=== PATIENT | female | born 1980 | race Caucasian/White ===

== ENCOUNTER 2023-08-14 07:40 | Emergency (ER) | payer OTHER, SELFPAY ==
[2023-08-14 07:52] VITALS: BP 138/75; PULSE 96; RESP 18; TEMP 36.9; O2SAT 98; BMI 31.3
--- NOTE | 2023-08-14 08:08 | ED_ITS ---
HPI - General Adult General Chief complaint: Sore Throat Stated complaint: difficulty swallowing Time Seen by Provider: 08/14/23 07:59 History of Present Illness HPI narrative: This 43-year-old female comes in reporting sore throat that began 2 days ago. She also reports some nasal congestion but states that she does not have a cough. She does not report any fevers. She feels like the glands in her neck are swollen. Related Data Home Medications Medication Instructions Recorded Confirmed citalopram 40 mg tablet 40 mg PO DAILY 08/14/23 08/14/23 dextroamphetamine-amphetamine 20 1 tab PO 3XD 08/14/23 08/14/23 mg tablet Previous Rx's Medication Instructions Recorded amoxicillin 500 mg capsule 500 mg PO TID 7 days #21 caps 08/14/23 Allergies Allergy/AdvReac Type Severity Reaction Status Date / Time No Known Drug Allergies Allergy Verified 08/14/23 07:54 Review of Systems Status of ROS: Reports: 10 or more systems reviewed and unremarkable except as noted in History and below Narrative: Constitutional: No fevers, no weight gain or loss. Eyes: No discharge. No vision changes. HENT: Sore throat and nasal congestion. She reports bilateral ear pain also. Cardiovascular: No chest pain, no palpitations. Respiratory: No shortness of breath, no wheezes, no cough. Gastrointestinal: No abdominal pain, no vomiting, no diarrhea. Genitourinary: No dysuria, no hematuria. Musculoskeletal: Normal range of motion. Skin: No rashes, no pruritis. Neurological: No dizziness, weakness, sensory change, speech change. Endo/Heme/Allergies: No bruising or bleeding. No polydipsia. Pysch: no suicidality, no anxiety, no insomnia. All other systems reviewed and are negative. PFSH [facility] Social History Smoking Status: Never smoker How often do you have a drink containing alcohol: never How often do you have six or more drinks on one occasion: Never AUDIT-C Alcohol total score: 0 Non-prescribed substance use: denies use Exam Narrative: Exam Narrative: Constitutional: Well-developed, well-nourished, no acute distress. HEENT: Normocephalic, atraumatic. Tympanic membranes appear normal bilaterally. Pharyngeal erythema without exudate or tonsillar hypertrophy. No trismus or muffled voice. Neck: Normal range of motion. Nontender. Supple. Heart: Regular. No murmurs. Normal rate. Intact distal pulses. Lungs: Clear to auscultation. No chest discomfort. No wheezes, rhonchi, or rales. Abdomen: Normal bowel sounds. Nontender. No rebound tenderness. Genitalia: Deferred. Back: No midline tenderness. Normal range of motion. Extremities: Normal range of motion. No injury. Skin: Intact. No rash. Warm. No erythema or pallor. Neurologic: No altered sensation. No weakness. Alert and oriented. Psychiatric: No suicidality. No anxiety or depression. No insomnia. Nursing notes and vitals signs are reviewed. Const: Vital Signs, click to edit/add: Vital Signs - 24 hr 08/14/23 07:52 Temperature 98.5 F Pulse Rate [Right Pulse Oximeter] 96 Respiratory Rate 18 Blood Pressure [Ri ght Upper Arm] 138/75 Pulse Oximetry 98 Oxygen Delivery Me thod Room Air Course Vital Signs Vital signs: Initial Vital Signs Temperature 98.5 F 08/14/23 07:52 Temperature Source Temporal Artery Scan 08/14/23 07:52 Pulse Rate 96 08/14/23 07:52 Respiratory Rate 18 08/14/23 07:52 Blood Pressure 138/75 08/14/23 07:52 Blood Pressure Mean 96 08/14/23 07:52 Blood Pressure Position Sitting 08/14/23 07:52 Pulse Oximetry 98 08/14/23 07:52 Oxygen Delivery Method Room Air 08/14/23 07:52 Vital Signs Temperature 98.5 F 08/14/23 07:52 Pulse Rate 96 08/14/23 07:52 Respiratory Rate 18 08/14/23 07:52 Blood Pressure 138/75 08/14/23 07:52 Pulse Oximetry 98 08/14/23 07:52 Oxygen Delivery Method Room Air 08/14/23 07:52 Temperature 98.5 F 08/14/23 07:52 Pulse Rate 96 08/14/23 07:52 Respiratory Rate 18 08/14/23 07:52 Blood Pressure 138/75 08/14/23 07:52 Pulse Oximetry 98 08/14/23 07:52 Oxygen Delivery Method Room Air 08/14/23 07:52 Medications Administered Medications: Discontinued Medications Generic Name Dose Route Start Last Admin Trade Name Freq PRN Reason Stop Dose Admin Dexamethasone 10 mg 08/14/23 08:18 08/14/23 08:30 Dexamethasone 10 Mg/Ml Inj PO 08/14/23 08:19 10 mg ONCE ONE Administration Medical Decision Making MDM Narrative Medical decision making narrative: This patient reports a sore throat for the past couple days. Strep testing is positive for strep pharyngitis. The patient did receive an oral dose of dexamethasone in a prescription for amoxicillin. Lab Data Labs: Lab Results 08/14/23 Range/Units 08:04 Group A Strep DNA DETECTED A (Not Detectd) Discharge Plan Discharge Clinical Impression: Acute streptococcal pharyngitis Patient Disposition: Home, Self-Care Condition: Stable Additional Instructions: Take medication as prescribed. Follow up with MD return if worsening. Prescriptions: New amoxicillin 500 mg capsule 500 mg PO TID 7 Days Qty: 21 0RF No Action citalopram 40 mg tablet 40 mg PO DAILY dextroamphetamine-amphetamine 20 mg tablet 1 tab PO 3XD Follow Up/Referrals: Generic,Amb Provider [Primary Care Provider] - Stand Alone Forms: [employer] Info Instructions
[2023-08-14] MEDS: dexAMETHasone 10 MG/ML inj PO (08:30)
[2023-08-14 08:31] LABS: Strep A DNA Probe* DETECTED (Not Detectd)
== END 2023-08-14 09:02 | disposition home or self-care (01) ==
PROVIDERS: Family Medicine; Emergency Provider Emergency Medicine Emergency Medical Services
DX: J02.0 Streptococcal pharyngitis (principal)
CPT/HCPCS: 87651; 99283; 99284; J1100